=== PATIENT | female | born 1985 | race Caucasian/White ===

== ENCOUNTER 2024-02-09 18:35 | Emergency (ER) | payer MEDICAID, SELFPAY ==
[2024-02-09 19:17] VITALS: BP 127/71; PULSE 73; RESP 18; TEMP 37; O2SAT 98
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
[2024-02-09 20:32] VITALS: RESP 18
== END 2024-02-09 20:33 | disposition home or self-care (01) ==
PROVIDERS: Emergency Provider Emergency Medicine; PCP Family Medicine
DX: S20.219A Contusion of unspecified front wall of thorax, initial encounter (principal); V89.2XXA Person injured in unspecified motor-vehicle accident, traffic, initial encounter
CPT/HCPCS: 71046; 93005; 99283

== ENCOUNTER 2024-03-02 10:22 | Emergency (ER) | payer MEDICAID, SELFPAY ==
[2024-03-02 10:45] VITALS: BP 144/86; PULSE 83; RESP 18; TEMP 37; O2SAT 99; BMI 27.4
--- NOTE | 2024-03-02 10:45 | EKG_ITS ---
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
== END 2024-03-02 12:24 | disposition home or self-care (01) ==
PROVIDERS: Emergency Provider Emergency Medicine; PCP Family Medicine
DX: R07.89 Other chest pain (principal); R94.31 Abnormal electrocardiogram [ECG] [EKG]; V89.2XXS Person injured in unspecified motor-vehicle accident, traffic, sequela
CPT/HCPCS: 71046; 93005; 99283